=== PATIENT | female | born 1935 | race Caucasian/White ===

== ENCOUNTER → 2016-07-12 | Outpatient (CLI) | payer OTHER ==
[~2016-07-12] MED LIST: ARM1 PO; ASPEC81 PO; ATOR10TA88 PO; CHOL100010 PO; DYZ PO; FRRS300 PO; GABA1CAP PO; MELO7.5T7 PO; NATURAL TEARS OPB; OMEG10007 PO; PRLSR20 PO; SYN50 PO
[2016-07-12 10:52] LABS: CHOLESTEROL/HDL RATIO 1.8; THYROID STIMULATING HORMONE 2.21 uIu/ml (0.300-4.500)
--- NOTE | 2016-07-25 09:33 | CODING QUERY MEDICAL NECESSITY ---
SUPPORTING DIAGNOSIS NEEDED A supporting diagnosis is required for the test/procedure performed on this patient in order for us to be reimbursed by the patient's insurance. Please provide a supporting diagnosis for the following test/procedure listed below next to the test name along with your signature. *If there is no additional diagnosis for this patient that would support the following test/procedure please document that below next to the test/procedure. Test(s)/Procedure(s) that require a supporting diagnosis: DOS 07/12 * Vitamin D DIAGNOSIS: Provider Signature: Date: Thank you Kenyatta Chen Health Information Management Once completed, please kindly fax back to [phone] For questions please call [phone]
== END | disposition home or self-care (01) ==
LOC: C.LABSPEC 10:43
PROVIDERS: ATTEND Internal Medicine Geriatric Medicine
DX: E78.5 Hyperlipidemia, unspecified (principal); I10 Essential (primary) hypertension; E03.9 Hypothyroidism, unspecified; M85.80 Other specified disorders of bone density and structure, unspecified site; C50.412 Malignant neoplasm of upper-outer quadrant of left female breast

== ENCOUNTER → 2016-08-19 | Outpatient (CLI) | payer OTHER ==
--- NOTE | 2016-08-19 13:58 | MAMMOGRAPHY REPORT ---
BILATERAL DIGITAL DIAGNOSTIC MAMMOGRAM TOMOSYNTHESIS WITH CAD: 08/19/2016 CLINICAL HISTORY: History of left breast cancer status post lumpectomy. The patient denies any palp able lumps or any current complaints. TECHNIQUE: Breast tomosynthesis in addition to standard 2D mammography was performed. Current study was also evaluated with a Computer Aided Detection (CAD) system. Bilateral CC and MLO 2-D and ana synthesis images were obtained. COMPARISON: Comparison is made to exams dated: 08/17/2015 mammogram, 05/11/2016 mammogram, 02/12/2015 mammogram, 07/18/2014 mammogram, and 01/14/2014 mammogram - [facility]. BREAST COMPOSITION: There are scattered areas of fibroglandular density in both breasts. FINDINGS: There has been no significant interval change compared to prior exams. There are no susp icious masses, calcifications, or areas of architectural distortion noted in either breast. There a re stable postsurgical changes in the left upper outer quadrant from prior lumpectomy, including sta ble density, architectural distortion, and surgical clips at the lumpectomy bed. Bilateral benign-a ppearing calcifications are not significantly changed. A biopsy marker clip is again noted in the r ight upper outer quadrant. IMPRESSION: ACR BI-RADS CATEGORY 2: BENIGN There is no mammographic evidence of malignancy in either breast. A 1 year screening mammogram is re commended. The patient has been verbally notified of the results. Approximately 10% of breast cancers are not detected with mammography. A negative mammographic repor t should not delay biopsy if a clinically suggestive mass is present. Eileen Houston M.D. /:08/19/2016 10:28:32 Cuff Setter Lockstitch: Mely LEIJA(Joslyn)(M), [facility] letter sent: Normal 1/2 BI-RADS Code: ACR BI-RADS Category 2: Benign
== END | disposition home or self-care (01) ==
LOC: C.MAMM 09:58
PROVIDERS: ATTEND Internal Medicine Geriatric Medicine
DX: Z85.3 Personal history of malignant neoplasm of breast (principal); Z08 Encounter for follow-up examination after completed treatment for malignant neoplasm

== ENCOUNTER → 2017-08-14 | Outpatient (CLI) | payer OTHER ==
[~2017-08-14] MED LIST changes: +ATOR10TA82 PO; -ATOR10TA88 PO; +GABA100C13 PO; -GABA1CAP PO
[2017-08-14 13:42] LABS: BASO % 0.8 %; BASO ABS # 0.07 K/uL (0-0.2); EOS % 3.8 %; EOS ABS # 0.31 K/uL (0-0.5); HEMATOCRIT 41.5 % (37-47); HEMOGLOBIN 13.7 g/dL (12.0-16.0); IG# 0.02 K/uL (0.00-0.02); LYMPH % 27.5 %; LYMPH ABS # 2.27 K/uL (1.2-3.4); MEAN CELL VOLUME 91.6 fL (80-100); MEAN CORPUSCULAR HEMOGLOBIN 30.2 pg (25-34); MEAN PLATELET VOLUME 9.9 fL (7.4-10.4); MONO ABS # 0.58 K/uL (0.11-0.59); NEUT % 60.7 %; NEUT ABS # 4.99 K/uL (1.4-6.5); PLATELET COUNT 317 K/uL (130-400); RED CELL DISTRIBUTION WIDTH CV 14.3 % (11.5-14.5); RED CELL DISTRIBUTION WIDTH SD 48.2 fL (36.4-46.3); WHITE BLOOD COUNT 8.24 K/uL (4.8-10.8)
[2017-08-14 14:15] LABS: ALBUMIN 3.6 gm/dl (3.4-5.0); ALT/SGPT 23 U/L (12-78); AST/SGOT 13 U/L (15-37); BLOOD UREA NITROGEN 17 mg/dl (7-18); CALCIUM 9.4 mg/dl (8.5-10.1); CARBON DIOXIDE 30 mmol/L (21-32); CREATININE 1.35 mg/dl (0.60-1.20); GLUCOSE 81 mg/dl (70-99); POTASSIUM 3.5 mmol/L (3.5-5.1); SODIUM 138 mmol/L (136-145)
[2017-08-14 14:26] LABS: ALKALINE PHOSPHATASE 87 U/L (45-117); CHOLESTEROL 191 mg/dl (0-200); LDL CHOLESTEROL CALCULATED 73 mg/dl; TOTAL PROTEIN 7.8 gm/dl (6.4-8.2)
== END | disposition home or self-care (01) ==
LOC: C.LABBC 09:56
PROVIDERS: ATTEND Internal Medicine Geriatric Medicine
DX: Z00.00 Encounter for general adult medical examination without abnormal findings (principal); E03.9 Hypothyroidism, unspecified; E78.5 Hyperlipidemia, unspecified; I10 Essential (primary) hypertension

== ENCOUNTER → 2017-08-22 | Outpatient (CLI) | payer OTHER ==
--- NOTE | 2017-08-23 15:53 | MAMMOGRAPHY REPORT ---
BILATERAL DIGITAL SCREENING MAMMOGRAM TOMOSYNTHESIS WITH CAD: 08/22/2017 CLINICAL HISTORY: Asymptomatic. Personal history of breast cancer. TECHNIQUE: Breast tomosynthesis in addition to standard 2D mammography was performed. Current study was also evaluated with a Computer Aided Detection (CAD) system. COMPARISON: Comparison is made to exams dated: 08/19/2016 mammogram, 05/11/2016 mammogram, 02/12/2015 mammogram, 07/18/2014 mammogram, 07/01/2013 mammogram, and 05/28/2012 mammogram - [facility]. BREAST COMPOSITION: There are scattered areas of fibroglandular density in both breasts. FINDINGS: There is stable expected architectural distortion, asymmetry and surgical clips in the uppe r outer posterior left breast, at the site of prior lump ectomy. There are numerous scattered benign round and rim calcifications in the breasts. Stable asymmetry in the right upper outer middle to po sterior breast. A stable metallic biopsy marker clip in the upper outer anterior right breast. No n ew suspicious mass, architectural distortion or cluster of microcalcifications is seen. IMPRESSION: ACR BI-RADS CATEGORY 1: NEGATIVE There is no mammographic evidence of malignancy. A 1 year screening mammogram is recommended. The pa tient will receive written notification of the results. Approximately 10% of breast cancers are not detected with mammography. A negative mammographic report should not delay biopsy if a clinically suggestive mass is present. Ines Garcia M.D. ay/:08/22/2017 16:18:58 Clinical Informatics Physician: Mely LEIJA(Joslyn)(M), [facility] letter sent: Normal 1/2 BI-RADS Code: ACR BI-RADS Category 1: Negative
== END | disposition home or self-care (01) ==
LOC: C.MAMM 11:07
PROVIDERS: ATTEND Internal Medicine Hematology & Oncology
DX: Z12.31 Encounter for screening mammogram for malignant neoplasm of breast (principal); Z85.3 Personal history of malignant neoplasm of breast

== ENCOUNTER → 2017-08-28 | Outpatient (CLI) | payer OTHER ==
--- NOTE | 2017-08-28 12:08 | DIAGNOSTIC IMAGING REPORT ---
CHEST 2 VIEWS ROUTINE CLINICAL HISTORY: 82 years-old Female presenting with R05 [id number]. TECHNIQUE: PA and lateral views of the chest were obtained. COMPARISON: 10/13/2010. FINDINGS: Atherosclerosis of aortic arch. Tortuosity of the descending thoracic aorta. Cardiac silhouette enlarged. Lungs and pleural spaces clear. Degenerative changes of the thoracic spine. Left paramediastinal lung base opacity may represent a hiatal hernia. Surgical clips noted in the left axilla. IMPRESSION: 1. No acute cardiopulmonary disease. Electronically signed by: Adiel Greenwood M.D. 08/28/2017 12:07 PM Dictated Date/Time: 08/28/2017 12:05 PM
== END | disposition home or self-care (01) ==
LOC: C.RADBC 11:47
PROVIDERS: ATTEND Physician Assistant Medical
DX: R05 Cough (principal)

== ENCOUNTER → 2017-08-28 | Outpatient (CLI) | payer OTHER ==
[2017-08-28 15:03] LABS: BLOOD UREA NITROGEN 12 mg/dl (7-18); CARBON DIOXIDE 32 mmol/L (21-32); CREATININE 0.96 mg/dl (0.60-1.20); GLUCOSE 97 mg/dl (70-99); POTASSIUM 3.5 mmol/L (3.5-5.1); SODIUM 140 mmol/L (136-145)
== END | disposition home or self-care (01) ==
LOC: C.LABBC 09:29
PROVIDERS: ATTEND Internal Medicine Geriatric Medicine
DX: R79.89 Other specified abnormal findings of blood chemistry (principal)

== ENCOUNTER → 2018-01-22 | Outpatient (CLI) | payer OTHER ==
[~2018-01-22] MED LIST changes: +GABA-1693 PO; -GABA100C13 PO
[2018-01-22 14:28] LABS: BLOOD UREA NITROGEN 18 mg/dl (7-18); CALCIUM 9.7 mg/dl (8.5-10.1); CARBON DIOXIDE 31 mmol/L (21-32); CREATININE 1.02 mg/dl (0.60-1.20); GLUCOSE 88 mg/dl (70-99); POTASSIUM 3.2 mmol/L (3.5-5.1); SODIUM 140 mmol/L (136-145)
== END | disposition home or self-care (01) ==
LOC: C.LABBC 09:10
PROVIDERS: ATTEND Internal Medicine Geriatric Medicine
DX: I10 Essential (primary) hypertension (principal)

== ENCOUNTER → 2018-02-14 | Outpatient (CLI) | payer OTHER ==
[2018-02-14 13:11] LABS: BLOOD UREA NITROGEN 13 mg/dl (7-18); CALCIUM 9.3 mg/dl (8.5-10.1); CARBON DIOXIDE 31 mmol/L (21-32); CREATININE 1.03 mg/dl (0.60-1.20); GLUCOSE 88 mg/dl (70-99); POTASSIUM 3.1 mmol/L (3.5-5.1); SODIUM 139 mmol/L (136-145)
== END | disposition home or self-care (01) ==
LOC: C.LABBC 09:14
PROVIDERS: ATTEND Internal Medicine Geriatric Medicine
DX: I10 Essential (primary) hypertension (principal)